=== PATIENT | male | born 1995 | race Caucasian/White ===

== ENCOUNTER 2018-03-13 13:56 | Emergency (ER) | payer SELFPAY ==
[2018-03-13 14:11] VITALS: BP 117/74; PULSE 90; TEMP 98.1; BMI 31.5
[2018-03-13] MEDS ORDERED: IBUPROFEN 600 MG TABLET (FP) PO ONE ×2 (14:17→14:20)
--- NOTE | 2018-03-13 14:18 | PDOC ---
History of Present Illness - History of Present Illness Initial Comments: Patient is a 22 year old male, who presents to the ED with his mother s/p left ankle injury approximately 2 hours ago. Patient states that he was playing basketball when he injured his left ankle. Patient state that he walked on it minimally following the incident. He states that he has not taken any medications for the pain. Patient states that he has sprained his right ankle in the past but this is the first time he has injured his left ankle. Allergies: NKDA PMHx: childhood asthma <Livia Cortes - Last Filed: 03/13/18 14:35> - History of Present Illness Initial Comments: 03/13/18 14:44 Physical exam: Alert and oriented no acute distress cooperative Afebrile vital signs normal No pain or injuries other than the left ankle. Left ankle with mild swelling over the anterolateral ligaments, mild tenderness to palpation over the soft tissues but no tenderness over the malleoli or fifth metatarsal. Pulses full. No sensory deficits. No deformities or instability. Impression: Grade 2 sprain, rule out fracture distal fibula Plan: X-ray and further orthopedic management depending on results 03/13/18 15:19 <Omar Zhao - Last Filed: 03/13/18 15:20> - General Chief Complaint: Injury Stated Complaint: TWISTED LEFT ANKLE PLAYING BASKETBALL Time Seen by Provider: 03/13/18 14:14 Past History <Livia Cortes - Last Filed: 03/13/18 14:35> - Past Medical History Asthma: Yes COPD: No - Surgical History Abdominal Surgery: Yes ( A BABY) - Suicide/Smoking/Psychosocial Hx Smoking History: Current some day smoker Have you smoked in the past 12 months: Yes Information on smoking cessation initiated: Yes 'Breaking Loose' booklet given: 03/13/18 Hx Alcohol Use: No Drug/Substance Use Hx: Yes (MARIJUANA) Substance Use Type: Marijuana <Omar Zhao - Last Filed: 03/13/18 15:20> - Past Medical History Allergies/Adverse Reactions: Allergies Allergy/AdvReac Type Severity Reaction Status Date / Time No Known Allergies Allergy Verified 03/13/18 13:58 Home Medications: Ambulatory Orders Ibuprofen 800 mg PO TID PRN #20 tablet 03/13/18 Review of Systems - Review of Systems Comments:: CONSTITUTIONAL: Absent: fever, no chills, no fatigue EYES: Absent: visual changes ENT: Absent: ear pain, no sore throat CARDIOVASCULAR: Absent: chest pain, no palpitations RESPIRATORY: Absent: cough, no SOB GI: Absent: abdominal pain, no nausea, no vomiting, no constipation, no diarrhea GENITOURINARY: Absent: dysuria, no frequency, no hematuria MUSCULOSKELETAL: PresentL right ankle swelling and pain. Absent: back pain. SKIN: Absent: rash <Livia Cortes - Last Filed: 03/13/18 14:35> *Physical Exam - Vital Signs Last Vital Signs Temp Pulse Resp BP Pulse Ox 98.1 F 90 16 117/74 98 03/13/18 13:58 03/13/18 13:58 03/13/18 13:58 03/13/18 13:58 03/13/18 13:58 <Livia Cortes - Last Filed: 03/13/18 14:35> - Vital Signs Last Vital Signs Temp Pulse Resp BP Pulse Ox 98.1 F 90 16 117/74 98 03/13/18 13:58 03/13/18 13:58 03/13/18 13:58 03/13/18 13:58 03/13/18 13:58 <Omar Zhao - Last Filed: 03/13/18 15:20> ED Treatment Course - Medications Given in the ED: ED Medications Discontinued Medications Generic Name Dose Route Start Last Admin Trade Name Freq PRN Reason Stop Dose Admin Ibuprofen 600 mg 03/13/18 14:17 03/13/18 14:22 Motrin - PO 03/13/18 14:18 600 mg ONCE ONE Administration <Livia Cortes - Last Filed: 03/13/18 14:35> Medical Decision Making - Medical Decision Making 03/13/18 15:18 X-ray shows soft tissue swelling. No fractures apparent. Good ankle mortise maintained Sebastian and crutches, patient ambulating adequately, continue rest ice and Motrin, orthopedic follow-up if no improvement 3-5 days. Adequately ambulatory and discharged with mother to follow-up as directed <Omar Zhao - Last Filed: 03/13/18 15:20> *DC/Admit/Observation/Transfer - Attestations Scribe Attestion: 03/13/18 14:37 Documentation prepared by Livia Cortes, acting as medical billing representative for Omar Lucero MD. <Livia Cortes - Last Filed: 03/13/18 14:35> - Discharge Dispostion Decision to Admit order: No <Omar Zhao - Last Filed: 03/13/18 15:20> Diagnosis at time of Disposition: Ankle sprain Qualifiers: Encounter type: initial encounter Involved ligament of ankle: tibiofibular ligament Laterality: left Qualified Code(s): S93.432A - Sprain of tibiofibular ligament of left ankle, initial encounter - Discharge Dispostion Disposition: HOME Condition at time of disposition: Stable - Prescriptions Prescriptions: Ibuprofen 800 mg PO TID PRN #20 tablet PRN Reason: pain and swelling - Referrals Referrals: Dylan Causey MD [Staff Physician] - 1 week - Patient Instructions Printed Discharge Instructions: How to Use Crutches, DI for Ankle Sprain, How to Apply an Sebastian Wrap - Post Discharge Activity Forms/Work/School Notes: Back to Work
== END 2018-03-13 15:22 | disposition home or self-care (01) ==
LOC: FER 13:56
DX: S93.432A Sprain of tibiofibular ligament of left ankle, initial encounter (principal); X58.XXXA Exposure to other specified factors, initial encounter; Y93.67 Activity, basketball; Y92.310 Basketball court as the place of occurrence of the external cause; J45.909 Unspecified asthma, uncomplicated
CPT/HCPCS: 73610-TC-LT-FY; 99281-25

== ENCOUNTER 2018-05-19 14:04 | Emergency (ER) | payer SELFPAY ==
--- NOTE | 2018-05-19 14:15 | PDOC ---
History of Present Illness - General Chief Complaint: RX Refill Stated Complaint: NEED ALBUTEROL REFILL Time Seen by Provider: 05/19/18 14:07 History Source: Patient Exam Limitations: No Limitations - History of Present Illness Initial Comments: 05/19/18 14:09 22 y/o male with cold, needs reill on his albuterol liquid for the machine. No SOB or chest pain. Mild cough and congestion. Denies traveling, fever or chills. No N/V/d/C. Severity: reports: mild Past History - Past Medical History Allergies/Adverse Reactions: Allergies Allergy/AdvReac Type Severity Reaction Status Date / Time No Known Allergies Allergy Verified 05/19/18 14:05 Home Medications: Ambulatory Orders Albuterol 0.083% Nebulizer Mya [Ventolin 0.083% Nebulizer Soln -] 1 neb NEB Q6H #10 vial 05/19/18 Asthma: Yes COPD: No - Surgical History Abdominal Surgery: Yes ( A BABY) - Suicide/Smoking/Psychosocial Hx Smoking History: Never smoked Have you smoked in the past 12 months: Yes Information on smoking cessation initiated: No 'Breaking Loose' booklet given: 03/13/18 Hx Alcohol Use: Yes Drug/Substance Use Hx: Yes Substance Use Type: Alcohol, Marijuana Review of Systems - Review of Systems Able to Perform ROS?: Yes Is the patient limited Japanese proficient: No Constitutional: No: Chills, Fever HEENTM: Yes: Nose Congestion. No: Throat Pain Respiratory: Yes: Cough, Wheezing. No: Shortness of Breath, Productive cough Cardiac (ROS): No: Chest Pain ABD/GI: No: Nausea, Vomiting All Other Systems: Reviewed and Negative *Physical Exam - Vital Signs Last Vital Signs Temp Pulse Resp BP Pulse Ox 98.5 F 96 H 18 133/78 100 05/19/18 14:04 05/19/18 14:04 05/19/18 14:04 05/19/18 14:04 05/19/18 14:04 - Physical Exam General Appearance: Yes: Nourished, Appropriately Dressed. No: Apparent Distress HEENT: positive: EOMI, TERESA, Normal ENT Inspection, Normal Voice, Pharynx Normal , Nasal Congestion. negative: Rhinorrhea, Sinus Tenderness Neck: positive: Trachea midline, Normal Thyroid, Supple. negative: Tender, Rigid, Carotid bruit Respiratory/Chest: positive: Lungs Clear, Normal Breath Sounds. negative: Chest Tender, Respiratory Distress, Wheezing Cardiovascular: positive: Regular Rhythm, Regular Rate, S1, S2. negative: Edema (no calf tenderness b/l), JVD, Murmur Vascular Pulses: Femoral (R): 4+, Femoral (L): 4+, Carotid (R): 4+, Carotid (L) : 4+, Dorsalis-Pedis (R): 4+, Doralis-Pedis (L): 4+ Gastrointestinal/Abdominal: positive: Normal Bowel Sounds, Flat, Soft. negative : Tender, Organomegaly Lymphatic: negative: Adenopathy, Tenderness, Other Musculoskeletal: positive: Normal Inspection. negative: CVA Tenderness Extremity: positive: Normal Capillary Refill, Normal Inspection, Normal Range of Motion. negative: Tender Integumentary: positive: Normal Color, Dry, Warm Neurologic: positive: manager financial systems II-XII NML intact, Fully Oriented, Alert, Normal Mood/ Affect, Normal Response, Motor Strength 5/5 Progress Note - Progress Note Progress Note: Patient with vital illness affecting asthma, will call in albuterol If worsen return to ER Patient is in agreement with plan, *DC/Admit/Observation/Transfer Diagnosis at time of Disposition: Acute viral syndrome Asthma Qualifiers: Asthma severity: mild Asthma persistence: intermittent Asthma complication type : with acute exacerbation Qualified Code(s): J45.21 - Mild intermittent asthma with (acute) exacerbation - Discharge Dispostion Disposition: HOME Condition at time of disposition: Stable Decision to Admit order: No - Referrals - Patient Instructions Printed Discharge Instructions: DI for Asthma -- Adult Additional Instructions: Continue asthma medications as needed If worsen return to ER - Post Discharge Activity
[2018-05-19 14:17] VITALS: BP 133/78; PULSE 96; TEMP 98.5; BMI 30.8
== END 2018-05-19 14:28 | disposition home or self-care (01) ==
LOC: FER 14:04
DX: B34.9 Viral infection, unspecified (principal); J45.21 Mild intermittent asthma with (acute) exacerbation
CPT/HCPCS: 99281-25

== ENCOUNTER 2018-10-09 16:28 | Emergency (ER) | payer OTHER ==
--- NOTE | 2018-10-09 16:33 | PDOC ---
History of Present Illness - General Chief Complaint: Injury Stated Complaint: OLD LAC TO RT 3RD FINGER Time Seen by Provider: 10/09/18 16:31 History Source: Patient Exam Limitations: No Limitations Past History - Past Medical History Allergies/Adverse Reactions: Allergies Allergy/AdvReac Type Severity Reaction Status Date / Time No Known Allergies Allergy Verified 10/09/18 16:29 Home Medications: Ambulatory Orders NK [No Known Home Medication] 10/09/18 Asthma: Yes COPD: No - Surgical History Abdominal Surgery: Yes ( A BABY) - Suicide/Smoking/Psychosocial Hx Smoking History: Never smoked Have you smoked in the past 12 months: Yes 'Breaking Loose' booklet given: 03/13/18 Hx Alcohol Use: Yes Drug/Substance Use Hx: Yes Substance Use Type: Alcohol, Marijuana *DC/Admit/Observation/Transfer Diagnosis at time of Disposition: Laceration of finger of right hand Qualifiers: Encounter type: initial encounter Finger: middle finger Damage to nail status: without damage Foreign body presence: without foreign body Qualified Code(s): S61.212A - Laceration without foreign body of right middle finger without damage to nail, initial encounter - Discharge Dispostion Disposition: HOME Condition at time of disposition: Good Decision to Admit order: No - Referrals Referrals: John Cabezas MD [Staff Physician] - [facility] [Provider Group] - Patient Instructions Printed Discharge Instructions: DI for Avulsion Laceration (Not Requiring Sutures) Additional Instructions: You were seen in the ER today for a laceration to your finger. Your x-ray today showed no new fractures. Please follow-up with the [facility] to establish a regular doctor and Hand specialist (Dr. Cabezas) within 1-2 days to discuss your visit and make sure your symptoms have improved. Please return to the ER if you have any worsening pain, development of fevers or chills, drainage of yellow fluid/pus, loss of strength or sensation in the finger, loss of consciousness, inability to tolerate food or fluids, or any other concerns. - Post Discharge Activity Forms/Work/School Notes: Back to Work
[2018-10-09] MEDS ORDERED: ACETAMINOPHEN 325 MG TABLET (FP) PO ONE (16:44)
[2018-10-09 16:57] VITALS: BP 119/66; PULSE 78; TEMP 98.6; BMI 28.7
--- NOTE | 2018-10-09 17:10 | PDOC ---
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 Finger was bandaged and splinted. He is worried that the laceration opens up when he tries to use the finger. Review of systems: Intermittent shooting pain from the laceration to the distal phalanx. No fever/chills, drainage, or bleeding. No limited range of motion or difficulty with fine tasks. Otherwise healthy male with no medical or surgical illness 10/09/18 17:33 - Physicial Exam PE: 10/09/18 17:09 Laceration over the dorsal aspect of the DIP joint, third finger. The wound appears to be closed. There is no bleeding or other drainage. There is strong extension against resistance of the DIP joint in no visible mallet deformity. Sensory is intact to the fingertip. Capillary refill is intact. - Medical Decision Making 10/09/18 17:10 Assessment: Superficial laceration, rule out injury to the bone or joint Plan: X-ray splinting and antibiotic, and hand specialist referral. 10/09/18 17:55 X-rays negative. Wound cleaned and dressed with bacitracin, bandage, splinted in extension, referral to .
[2018-10-09] MEDS ORDERED: ACETAMINOPHEN 325 MG TABLET (FP) ONE (17:23)
== END 2018-10-09 18:25 | disposition home or self-care (01) ==
LOC: FER 16:28
DX: Z48.01 Encounter for change or removal of surgical wound dressing (principal); S61.212A Laceration without foreign body of right middle finger without damage to nail, initial encounter; W45.8XXA Other foreign body or object entering through skin, initial encounter; Y93.89 Activity, other specified; Y92.89 Other specified places as the place of occurrence of the external cause
CPT/HCPCS: 73130-TC-RT-FY; 99281-25

== ENCOUNTER 2019-05-29 11:23 | Emergency (ER) | payer OTHER ==
[2019-05-29 11:29] VITALS: BP 118/89; PULSE 67; TEMP 98.3; BMI 30.8
[2019-05-29] MEDS ORDERED: ACETAMINOPHEN 500 MG TABLET (FP) PO ONE (11:37)
--- NOTE | 2019-05-29 12:01 | PDOC ---
History of Present Illness - General Chief Complaint: Pain, Acute Stated Complaint: right 1st toe pain Time Seen by Provider: 05/29/19 11:24 - History of Present Illness Initial Comments: 05/29/19 11:56 23 M with no PMH presents to ED with R foot pain. He states he accidentally stubbed his toe when he kicked a wall. Pt denies falling or hitting his head. Now complains of pain in his R big toe radiating up his foot. States he is still able to ambulate but with some pain. Past History - Past Medical History Allergies/Adverse Reactions: Allergies Allergy/AdvReac Type Severity Reaction Status Date / Time No Known Allergies Allergy Verified 05/29/19 11:24 Home Medications: Ambulatory Orders NK [No Known Home Medication] 10/09/18 Asthma: Yes COPD: No - Surgical History Abdominal Surgery: Yes ( A BABY) - Immunization History Immunization Up to Date: Yes - Psycho Social/Smoking Cessation Hx Smoking History: Never smoked Have you smoked in the past 12 months: Yes 'Breaking Loose' booklet given: 03/13/18 Hx Alcohol Use: Yes Drug/Substance Use Hx: No Substance Use Type: Alcohol, Marijuana Review of Systems - Review of Systems Comments:: 05/29/19 12:01 "GENERAL/CONSTITUTIONAL: No fever or chills. No weakness. HEAD, EYES, EARS, NOSE AND THROAT: No change in vision. No ear pain or discharge. No sore throat. CARDIOVASCULAR: No chest pain, no shortness of breath, no loss of consciousness RESPIRATORY: No cough, wheezing, or hemoptysis. GASTROINTESTINAL: No nausea, vomiting, diarrhea or constipation. GENITOURINARY: No dysuria, frequency, or change in urination. MUSCULOSKELETAL: + R foot pain. No neck or back pain. SKIN: No rash NEUROLOGIC: No vertigo, no change in strength/sensation. ENDOCRINE: No increased thirst. No abnormal weight change. HEMATOLOGIC/LYMPHATIC: No anemia, easy bleeding, or history of blood clots. ALLERGIC/IMMUNOLOGIC: No hives or skin allergy. *Physical Exam - Vital Signs Last Vital Signs Temp Pulse Resp BP Pulse Ox 98.3 F 67 17 118/89 100 05/29/19 11:24 05/29/19 11:24 05/29/19 11:24 05/29/19 11:24 05/29/19 11:24 - Physical Exam 05/29/19 12:01 "GENERAL: Awake, alert, and fully oriented, in no acute distress. HEAD: No signs of trauma EYES: PERRLA, EOMI, sclera anicteric, conjunctiva clear ENT: Auricles normal inspection, hearing grossly normal, nares patent, oropharynx clear without exudates. Moist mucosa NECK: Nontender, no stepoffs, Normal ROM, supple, no lymphadenopathy, JVD, or masses LUNGS: Breath sounds equal, clear to auscultation bilaterally. No wheezes, and no crackles HEART: Regular rate and rhythm, normal S1 and S2, no murmurs, rubs or gallops ABDOMEN: Soft, nontender, normoactive bowel sounds. No guarding, no rebound. No masses EXTREMITIES: + R great toe with subungual hematoma covering entirety of nail, + tenderness and swelling to toe over proximal phalanx, Normal range of motion NEUROLOGICAL: Cranial nerves II through XII intact. 5/5 strength and sensation in all extremities, Normal speech, normal gait, normal cerebellar function SKIN: Warm, Dry, normal turgor, no rashes or lesions noted. Procedures - Splinting Splint Location: Right: Foot Pre-Proc Neuro Vasc Exam: normal Hand-Made Type: orthoglass Splint Type: Yes: Short Leg Post-Proc Neuro Vasc Exam: normal Sebastian Bandage: yes ED Treatment Course - RADIOLOGY Radiology Studies Ordered: Category Date Time Status FOOT-RIGHT [RAD] Stat Radiology 05/29/19 11:37 Ordered Medical Decision Making - Medical Decision Making 05/29/19 12:02 23 M with R great toe pain and R foot pain after kicking a wall yesterday. - XR R foot - Tylenol Subungual hematoma trephinated and evacuated using electrocautery. 05/29/19 13:44 XR shows 1st proximal phalanx fx WIll place in short leg splint 05/29/19 13:58 Pt splinted, given crutches Will DC with ortho f/u Pt is well appearing, with normal vitals. Clinically stable for DC at this time. I discussed the physical exam findings, ancillary test results and final diagnoses with the patients family. I answered all of their questions. The family was satisfied with the care received and felt comfortable with the discharge plan and treatment plan. They agree to follow up with the primary care physician within 24-72 hours. Discharge - Discharge Information Problems reviewed: Yes Clinical Impression/Diagnosis: Toe fracture, Subungual hematoma Condition: Stable Disposition: HOME - Follow up/Referral Referrals: Leeroy Lee DO [Staff Physician] - - Patient Discharge Instructions Patient Printed Discharge Instructions: DI for Toe Fracture Additional Instructions: You have a fracture of your big toe. Keep your leg in the splint at all times. Do not bear weight or walk on this foot. Follow up with an orthopedist within 48 hours for further management of your broken toe. If you experience worsening pain, swelling, numbness, or any other concerning symptoms, return to the ER immediately. - Post Discharge Activity
== END 2019-05-29 14:08 | disposition home or self-care (01) ==
LOC: FER 11:23
PROC: 0H9RXZZ Drainage of Toe Nail, External Approach (ICD-10-PCS; principal; 2019-05-29)
DX: S90.211A Contusion of right great toe with damage to nail, initial encounter (principal); S92.404A Nondisplaced unspecified fracture of right great toe, initial encounter for closed fracture; W22.01XA Walked into wall, initial encounter; Y93.89 Activity, other specified; Y92.89 Other specified places as the place of occurrence of the external cause; J45.909 Unspecified asthma, uncomplicated
CPT/HCPCS: 73630-TC-RT-FY; 99283-25

== ENCOUNTER 2019-12-31 17:05 | Emergency (ER) | payer OTHER ==
[2019-12-31 17:15] VITALS: BP 129/78; PULSE 100; TEMP 99.1; BMI 31.4
[2019-12-31] MEDS ORDERED: CEPHALEXIN MONOHYDRATE 500 MG CAPSULE (UD) PO ONE (17:53)
[2019-12-31] MEDS ORDERED: CEPHALEXIN MONOHYDRATE 500 MG CAPSULE (UD) ONE (17:56)
--- NOTE | 2019-12-31 17:59 | PDOC ---
Documentation entered by Candelaria Monreal SCRIBE, acting as scribe for Omar Zhao MD. Omar Zhao MD: This documentation has been prepared by the scribeRah Maria, SCRIBE, under my direction and personally reviewed by me in its entirety. I confirm that the documentation accurately reflects all work, treatment, procedures, and medical decision making performed by me. History of Present Illness - General Chief Complaint: Wound Stated Complaint: SCRATCH TO LEFT GROIN History Source: Patient Exam Limitations: No Limitations - History of Present Illness Initial Comments: 12/31/19 17:47 The patient is a 24 year old male with a significant past medical history of asthma who presents to the emergency department with an abscess on his groin. As per patient, he states he scratched a pimple on his groin 3 days ago and it began to become more swollen and painful prompting him to the ER. Past History - Medical History Allergies/Adverse Reactions: Allergies Allergy/AdvReac Type Severity Reaction Status Date / Time No Known Allergies Allergy Verified 12/31/19 17:08 Home Medications: Ambulatory Orders Cephalexin Monohydrate [Keflex] 250 mg PO Q6H #20 capsule 12/31/19 Asthma: Yes COPD: No - Surgical History Abdominal Surgery: Yes ( A BABY) - Immunization History Immunization Up to Date: Yes - Psycho-Social/Smoking History Smoking History: Never smoked Have you smoked in the past 12 months: Yes Information on smoking cessation initiated: No 'Breaking Loose' booklet given: 03/13/18 - Substance Abuse Hx (Audit-C & DAST Scrn) How often the patient has a drink containing alcohol: Monthly or less Number of drinks the patient has on a typical day: 1 or 2 Score: In Men: 4 or > Positive; In Women: 3 or > Positive: 1 Screen Result (Pos requires Nsg. Audit-10AR): Negative In the last yr the pt used illegal drug/Rx for NonMed reason: Yes Score: Yes response is considered Positive: 1 Screen Result (Positive result requires Nsg. DAST-10): Positive Review of Systems - Review of Systems Able to Perform ROS?: Yes Comments:: 12/31/19 17:47 CONSTITUTIONAL: Absent: fever, no chills, no fatigue EYES: Absent: visual changes ENT: Absent: ear pain, no sore throat CARDIOVASCULAR: Absent: chest pain, no palpitations RESPIRATORY: Absent: cough, no SOB GI: Absent: abdominal pain, no nausea, no vomiting, no constipation, no diarrhea GENITOURINARY: Absent: dysuria, no frequency, no hematuria MUSKULOSKELETAL: Absent: back pain, no arthralgia, no myalgia SKIN: Absent: rash NEURO: Absent: headache *Physical Exam - Vital Signs Last Vital Signs Temp Pulse Resp BP Pulse Ox 99.1 F 100 H 18 129/78 99 12/31/19 17:08 12/31/19 17:08 12/31/19 17:08 12/31/19 17:08 12/31/19 17:08 - Physical Exam 12/31/19 17:47 Well-appearing, well-nourished. No apparent distress. HEENT: Normocephalic, atraumatic. PERRL, EOM intact. CARDIOVASCULAR: Normal S1, S2. Regular rate and rhythm. PULMONARY: Clear to auscultation bilaterally. ABDOMEN: Soft, non-distended, non-tender. EXTREMITIES: Normal ROM in all four extremities. No gross deformities. SKIN: +infected inclusion cyst on the left groin approximately 2cm in diameter just below the skin, the puntome was secluded and tender. No warmth or erythema. No crusting or drainage. No urethral discharge. Testis were normal. Warm, dry. No rash NEUROLOGICAL: No focal neurological deficits. Medical Decision Making - Medical Decision Making 12/31/19 18:01 Procedure note: I&D groin abscess Skin prepped with Betadine. Local anesthesia 1% lidocaine plain with good results I&D performed with drainage of purulent fluid. Patient tolerated procedure well. Wound dressed with 4 x 4. Wound care instructions. Oral antibiotics. Follow-up as directed. Fully ambulatory and in no pain or other distress at discharge Discharge - Discharge Information Problems reviewed: Yes Clinical Impression/Diagnosis: Infected cyst of skin Condition: Improved Disposition: HOME - Admission No - Additional Discharge Information Prescriptions: Cephalexin Monohydrate [Keflex] 250 mg PO Q6H #20 capsule - Follow up/Referral Referrals: Miguelina Grover [Staff Physician] - 3 days - Patient Discharge Instructions Patient Printed Discharge Instructions: DI for Incision and Drainage of a Skin Abscess Additional Instructions: Continue antibiotics as directed. Warm compresses or warm soaks in the bathtub (sitz bath) Recheck in 2 days if pain persists or swelling recurs. - Post Discharge Activity
== END 2019-12-31 18:03 | disposition home or self-care (01) ==
LOC: FER 17:05
PROC: 0H99XZZ Drainage of Perineum Skin, External Approach (ICD-10-PCS; principal; 2019-12-31)
DX: L02.214 Cutaneous abscess of groin (principal)
CPT/HCPCS: 99283-25

== ENCOUNTER 2022-11-03 09:52 | Emergency (ER) | payer OTHER ==
[2022-11-03 10:12] VITALS: BP 112/64; PULSE 70; RESP 16; TEMP 98.7; BMI 32.8
[2022-11-03] MEDS ORDERED: NAPROXEN 500 MG TABLET PO ONE (10:27)
[2022-11-03] MEDS ORDERED: NAPROXEN 500 MG TABLET ONE (10:58)
[2022-11-03] MEDS ORDERED: oxyCODONE HCL 5 MG TABLET PO ONE ×2 (11:31→13:54)
[2022-11-03] MEDS ORDERED: oxyCODONE HCL 5 MG TABLET ONE (14:09)
== END 2022-11-03 14:47 | disposition home or self-care (01) ==
LOC: FER 09:52
DX: S82.52XA Displaced fracture of medial malleolus of left tibia, initial encounter for closed fracture (principal); S91.332A Puncture wound without foreign body, left foot, initial encounter; X50.1XXA Overexertion from prolonged static or awkward postures, initial encounter; Y93.39 Activity, other involving climbing, rappelling and jumping off
CPT/HCPCS: 73610-TC-LT-FY; 73630-TC-LT; 99283-25